=== PATIENT | male | born 1970 | race Caucasian/White ===

== ENCOUNTER → 2018-11-05 | Day surgery (SDC) | payer MEDICARE, OTHER ==
[~2018-11-05] MED LIST: FENTANYL CITRATE/PF 100MCG/2 ML INJ ONE; FISH OIL 1,0001 EAC2 PO; HYOSCYAMINE SULFATE 0.5 MG/ML INJ ONE; MIDAZOLAM HCL 2 MG/2 ML VIAL ONE; MULTI-VITAMIN1 EACH PO; PROPOFOL IV EMULSION 10 MG/ML 20 ML VIAL ONE; PROPOFOL IV EMULSION 10 MG/ML 50 ML VIAL ONE
[2018-11-05 14:25] VITALS: BP 104/70
--- NOTE | 2018-11-05 21:17 | Operative Report ---
DATE OF PROCEDURE: 11/05/2018 SURGEON: Manohar Turpin MD PROCEDURE: Colonoscopy with polypectomy and biopsies. INDICATIONS FOR COLONOSCOPY: History of Crohn disease, colon polyps. MEDICATIONS: The patient was done under MAC, please see anesthesiologist's note. PROCEDURE IN DETAIL: With the patient in left lateral decubitus position, a flexible fiberoptic Olympus colonoscope was inserted into the rectum with ease and advanced all the way to the ileocolic anastomosis, which was intact. The anastomosis was ulcerated and biopsies were obtained. The scope was then withdrawn slowly and 2 polyps, one was hot biopsied and the other was snared from the descending colon. Diverticular disease was noted in the sigmoid colon. Three polyps were hot biopsied from the distal rectum. The scope was then retroflexed into the distal rectum and small internal hemorrhoids were noted, none of which was actively bleeding. The scope was then straightened out, it was subsequently withdrawn. The patient tolerated the procedure well. IMPRESSION: 1. Ileocolic anastomosis intact, ulcerated, biopsied. 2. Descending colon polyps x2, one snared, one hot biopsied. 3. Diverticulosis. 4. Rectal polyps x3, hot biopsied. 5. Small internal hemorrhoids, none actively bleeding. PLAN: Follow up histology. Check CRP and sedimentation rate. The patient might benefit from a followup colonoscopy in 3 years. Manohar Turpin MD [facility] /[id number] cc: Bear Mix MD
== END | disposition home or self-care (01) ==
LOC: OR 11:39 → EDBD 13:30
PROVIDERS: ATTEND Internal Medicine Gastroenterology
DX: K50.90 Crohn's disease, unspecified, without complications (principal); K63.5 Polyp of colon; K62.1 Rectal polyp; K63.3 Ulcer of intestine; K57.30 Diverticulosis of large intestine without perforation or abscess without bleeding; K64.8 Other hemorrhoids; Z98.0 Intestinal bypass and anastomosis status; K21.9 Gastro-esophageal reflux disease without esophagitis; E78.00 Pure hypercholesterolemia, unspecified; R03.0 Elevated blood-pressure reading, without diagnosis of hypertension; Z88.6 Allergy status to analgesic agent; Z01.810 Encounter for preprocedural cardiovascular examination; Z68.29 Body mass index [BMI] 29.0-29.9, adult
CPT/HCPCS: 36415; 45380; 45384; 45385; 83993; 85651; 86140; 88305; 93005; J1980; J2250; J2704 ×2; 45378; 88312

== ENCOUNTER 2020-01-22 11:57 | Emergency (ER) | payer MEDICARE, OTHER ==
[~2020-01-22] VITALS: Ht 175.3 cm; Wt 86.2 kg
[~2020-01-22 11:57] MED LIST changes: -FENTANYL CITRATE/PF 100MCG/2 ML INJ ONE; -HYOSCYAMINE SULFATE 0.5 MG/ML INJ ONE; -MIDAZOLAM HCL 2 MG/2 ML VIAL ONE; -PROPOFOL IV EMULSION 10 MG/ML 20 ML VIAL ONE; -PROPOFOL IV EMULSION 10 MG/ML 50 ML VIAL ONE
--- OUTSIDE RECORDS SUMMARY | 2020-01-22 12:57 | XMS REPORT | Continuity of Care Document ---
Author Author [facility] t Organization [facility] Address [address] [place] [address] Phone Unavailable Care Team Providers Care Job Change Crew Member Name Role Phone NO, PCP PCP Unavailable SWEET, Jennifer GROVES Attphys Unavailable Payers Payer Name Policy Type Policy Number Effective Date Expiration Date [place] [facility] [id number] 00:00:00 [facility] Medicare A & B [id number] 2011 00:00:00 [facility] [id number] 2012 00:00:00 [facility] Problems This patient has no known problems. Allergies, Adverse Reactions, Alerts Allergy Name Allergy Type Status Severity Reaction(s) Onset Date Inacti ve Date Treating Clinician Comments Source Morphine Allergy to Substance Active REDNESS/ITCH 2018-08-12 00:00 :00 [facility] Social History Social Habit Start Date Stop Date Quantity Comments Source Sex Assigned At Kee Chapman Medications Ordered Medication Name Filled Medication Name Start Date Stop Da te Current Medication? Ordering Clinician Indication Dosage Frequency Signature (SIG) Comments Components Source B-12 B-12 Yes 1 Weekly [facility] Doxycycline Doxycycline Yes Daily [facility] Iron Iron Yes 65 Daily [facility] [place]-3 Fatty Acids/Fish Oil (Fish Oil 1,000 Mg Capsul e) 1 Each Capsule [place]-3 Fatty Acids/Fish Oil (Fish Oil 1,000 Mg Capsule) 1 Each Capsule Yes 1000 Daily [facility] Omeprazole (Prilosec) 40 Mg Capsule. Omeprazole (Prilosec) 40 Mg Capsule.dr Peraza 40 As Needed [facility] Remecaide Remecaide Yes Q 8 Wks [facility] Vitamin D Vitamin D Yes Daily [facility] Multivitamin (Multi-Vitamin Daily) 1 Each Tablet Multi vitamin (Multi-Vitamin Daily) 1 Each Tablet Yes 1 Daily [facility] [place]-3 Fatty Acids/Fish Oil (Fish Oil 1,000 Mg Capsul e) 1 Each Capsule [place] Fatty Acids/Fish Oil (Fish Oil 1,000 Mg Capsule) 1 Each Capsule Yes 1 Daily [facility] Vit. D , 72420 Oral Vit. D , 28467 Oral 2016-11-01 00:00:00 No [address]82 Weekly [facility] Acetaminophen With Codeine (Tylenol With Codeine #3 Tablet) 1 Each Tablet, 300 Mg Oral Acetaminophen With Codeine (Tylenol With Codeine #3 Tablet) 1 Each Tablet, 300 Mg Oral 2016-10-31 00:00:00 No 300 Every 6 Hours for Pain [facility] Atorvastatin Calcium (Lipitor) 20 Mg Tablet, 20 Mg Ora l Atorvastatin Calcium (Lipitor) 20 Mg Tablet, 20 Mg Oral 2016-10-31 00:00:00 No 2 0 Daily [facility] Meclizine Hcl (Antivert) 25 Mg Tablet, 25 Mg Oral Mecl izine Hcl (Antivert) 25 Mg Tablet, 25 Mg Oral 2016-10-31 00:00:00 No 25 Every 8 Hours for Dizziness [facility] Vit. K , 595 Mg Oral Vit. K , 595 Mg Oral 2016-10-31 00:00:00 No 595 Daily [facility] Doxycycline , 50 Mg Oral Doxycycline , 50 Mg Oral 2015-02-20 00: 00:00 No 50 Daily [facility] Hydrocodone Bit/Acetaminophen (Hydrocodo n-Acetaminophn 10-325) 1 Each Tablet, 10-325 Mg Oral Hydrocodone Bit/Acetaminophen (Hydrocodo n-Acetaminophn 10-325) 1 Each Tablet, 10-325 Mg Oral 2015-02-20 00:00:00 No As Needed [facility] Gummies B12 , Oral Gummies B12 , Oral 2014-09-26 00:00:00 No Daily [facility] Gummies Vit C , Oral Gummies Vit C , Oral 2014-09-26 00:00:00 No Daily [facility] Gummies Vit D , Oral Gummies Vit D , Oral 2014-09-26 00:00:00 No Daily [facility] Procedures Procedure Date / Time Performed Performing Clinician [facility] e X-ray of chest, two views 2019-05-26 00:00:00 YANELI BARRIOS [facility] COLONOSCOPY AND BIOPSY 2018-11-05 00:00:00 OZZY ALONSO [facility] COLONOSCOPY W/LESION REMOVAL 2018-11-05 00:00[facility] 2018-11-05 00:00:00 ALONSO, [facility] Plan of Care Planned Activity Planned Date Details Comments Source Future Scheduled Test 2020-02-26 00:00:00 INFLUENZA VACCINE [code = INFLUENZA VACCINE] [facility] Future Scheduled Test 2019 00:00:00 COLONOSCOPY SCREEN ING [code = COLONOSCOPY SCREENING] [facility] Future Scheduled Test 2019 00:00:00 SHINGLES VACCINES (#1) [code = SHINGLES VACCINES (#1)] [facility] Encounters Start Date/Time End Date/Time Encounter Type Admission Type Att[facility] Facility Care Department Encounter ID Source 2019-05-26 13:12:00 2019-05-26 15:08:00 Departed Emergency Room 1 SOPHIE YANELI [facility] [id number] [facility] 2019-05-22 16:30:00 2019-05-22 17:50:00 Departed Emergency Room [facility] [id number] [facility] 2018-11-05 11:39:00 2018-11-05 11:39:00 Registered Surgical Day Care [facility] [id number] [facility] 2018-08-12 17:02:00 2018-08-12 18:05:00 Departed Emergency Room [facility] [id number] [facility] Results Test Description Test Time Test Comments Results Result Comments Source CHEST 2 VIEWS 2019-05-26 14:36:00 [facility] [address] [address] Patient Name: TRACY BARR MR #: [id number] : 1970 Age/Sex: 49/M Req #: [id number] Adm Physician: Ordered by: YANELI BARRIOS MD Report #: [id number] Location: ER Room/Bed: Procedure: [id number] DX/CHEST 2 VIEWS Exam Date: 05/26/19 Exam Time: 1405 REPORT STATUS: Signed EXAMINATION: CHEST 2 VIEWS INDICATION: Cough COMPARISON: None FINDINGS: LINES/TUBES:None LUNGS:The lungs are well-inflated. No focal consolidation or pulmonary edema. Mild bibasilar subsegmental atelectasis. PLEURA:No p leural effusion or pneumothorax. MEDIASTINUM:The cardiomediastinal silhouette appears normal in size and shape. BONES/SOFT TISSUES:No acute osseous injury. ABDOMEN:No free air under the diaphragm. IMPRESSION: No focal pneumonia or pulmonary edema. Signed by: Pastor Lockwood MD on 05/26/2019 2:37 PM Dictated By: PASTOR LOCKWOOD MD 36 Transcribed By: KRISTAN on 05/26/191436 COPY TO: YANELI BARRIOS MD Group A Streptococcus Screen 2019-05-26 14:12:00 Test Item Group A Streptococcus Screen (test code = 03673-1) NEGATIVE [facility] [id number] 06:16:00* Test Item Value Reference Range Interpretation Comments Stool Calprotectin (test code = 01387-4) <16 0-120 Concentration Interpretation Follow-Up<16 - 50 ug/g Normal None>50 -120 ug/g Borderline Re-evaluate in 4-6 weeks >120 ug/g Abnormal Repeat as clinically indicatedPerformed at: [facility] [address] [id number] Director: Rossana Mtz MD, Phone: [phone] County Hospitaltool [id number] 06:16:00* Test Item Value Reference Range Interpretation Comments Stool Calprotectin (test code = 64259-1) <16 0-120 Concentration Interpretation Follow-Up<16 - 50 ug/g Normal None>50 -120 ug/g Borderline Re-evaluate in 4-6 weeks >120 ug/g Abnormal Repeat as clinically indicatedPerformed at: [facility] [address] [id number] Director: Rossana Mtz MD, Phone: [phone] Regional Medical CenterC-Reactive [id number] 01:20:00* Test Item Value Reference Range Interpretation Comments C-Reactive Protein (test code = 1987-09) 0.9 0.0-4.9 Effective November 11, 2018 the reference interval for C-Reactive Protein, Quant, will be changing to: Age Male Female 0 - 30 days Not Estab. Not Estab. 1 month - 17 years 0 - 7 0 - 9 >17 years 0 - 10 0 - 10Performed at: [facility] [address] [id number] Director: Nigel Koch MD, Phone: [phone] Regional Medical CenterC-Reactive [id number] 01:20:00* Test Item Value Reference Range Interpretation Comments C-Reactive Protein (test code = 1987-09) 0.9 0.0-4.9 Effective November 11, 2018 the reference interval for C-Reactive Protein, Quant, will be changing to: Age Male Female 0 - 30 days Not Estab. Not Estab. 1 month - 17 years 0 - 7 0 - 9 >17 years 0 - 10 0 - 10Performed at: [facility] [id number] Director: Nigel Koch MD, Phone: [phone] Regional Medical CenterErythrocyte Sedimentation [id number] 15:51:00* Test Item Value Reference Range Interpretation Comments Erythrocyte Sedimentation Rate (test code = 4537-7) 2 0- 13 [facility] CenterErythrocyte Sedimentation [id number] 15:51:00* Test Item Value Reference Range Interpretation Comments Erythrocyte Sedimentation Rate (test code = 4537-7) 2 0- 13 [facility]
--- OUTSIDE RECORDS SUMMARY | 2020-01-22 12:57 | XMS REPORT | Clinical Summary ---
Author Author [facility] Organization [place] [facility] Address Unknown Phone Unavailable Care Team Providers Care Water Project Manager Name Role Phone Asked, No Pcp PCP Unavailable Allergies Not on File Medications Not on file Active Problems Not on file Social History Date Tobacco Use Types Packs/Day Years Used Never Assessed Sex Assigned at Date Recorded Not on file Industry Job Start Date Occupation Not on file Not on file Not on file Travel End Travel History Travel Start No recent travel history available. Last Filed Vital Signs Not on file Plan of Treatment Health Maintenance Due Date Last Done Comments COLONOSCOPY SCREENING 2019 SHINGLES VACCINES (#1) 2019 INFLUENZA VACCINE 02/26/2020 Results Not on fileafter 01/21/2019 Insurance Type Payer Benefit Subscriber ID Effective Phone Address Plan / Dates Group Medicare MEDICARE MEDICARE xxxxxxxxxxx 2011-P [place] B xxxxxxxxx 2018- FOR LIFE Present MCR SUPPLEMENT Advance Directives For more information, please contact: [phone] Patient Sales Architect Explanation Type Date Recorded Advance Directives, Living Will and Medical Power of Needle Board Repairer
--- NOTE | 2020-01-22 13:31 | Diagnostic Imaging Report ---
EXAMINATION: CHEST SINGLE (PORTABLE) INDICATION: Cough, chills COMPARISON: Chest radiograph 05/26/2019 FINDINGS: LINES/TUBES:None LUNGS:The lungs are mildly hyperinflated. No focal consolidation or pulmonary edema. PLEURA:No pleural effusion or pneumothorax. MEDIASTINUM:The cardiomediastinal silhouette appears normal in size and shape. BONES/SOFT TISSUES:No acute osseous injury. ABDOMEN:No free air under the diaphragm. IMPRESSION: Mildly hyperinflated lungs. No focal pneumonia or pulmonary edema. Signed by: Rachna Pedersen MD on 01/22/2020 1:28 PM
--- NOTE | 2020-01-22 15:43 | Emergency Department Note ---
History of Present Illnes History of Present Illness Chief Complaint: Respiratory History of Present Illness This is a 49 year old male with Chief Complaint of cough. 49 Y/O MALE PT AAOX3 PRESENTS TO THE ER C/O CHILLS, COUGH, BODY ACHES AND MALAISE INTERMITTENTLY X2 WEEKS; PT REPORTS YELLOW SPUTUM; REPORTS TAKING X1 TYLENOL TAB MASH GRINDER; DENIES FEVER/CHILLS, N/V/D; PT DENIES CP OR SOB; RESP EVEN/UNLABORED; SKIN WARM, DRY AND COLOR WNL FOR PT; SPO2 98% RA; NAD NOTED AT THIS TIME. He had similar illness last year, tx with z-pack and albuterol. Historian: Patient Arrival Mode: Car Cleat Feeder Required: No Onset (how long ago): week(s) Radiation: Reports non-radiation Severity: moderate Onset quality: gradual Duration (how long): week(s) Progression: waxing and waning Chronicity: recurrent Relieving factors: none Exacerbating factors: none Associated symptoms: Reports denies other symptoms Treatments prior to arrival: none Previous service: medications given Past Medical/Family History Physician Review I have reviewed the patient's past medical and family history. Any updates have been documented here. Past Medical History Recent Fever: No Clinical Suspicion of Infectio: No New/Unexplained Change in Ment: No Other Medical History: CROHNS Past Surgical History: Appendectomy, Colon Resection Other Surgery: COLON RESECTION X 4 Social History Smoking Cessation: Never Smoker Alcohol Use: None Any Illegal Drug Use: No Physically hurt or threatened: No Other Last Tetanus: 2019 Any Pre-Existing Lines (PICC,: No Review of Systems Review of Systems Constitutional: Reports no symptoms EENTM: Reports no symptoms Cardiovascular: Reports no symptoms Respiratory: Reports no symptoms Gastrointestinal: Reports no symptoms Genitourinary: Reports no symptoms Musculoskeletal: Reports no symptoms Integumentary: Reports no symptoms Neurological: Reports no symptoms Psychological: Reports no symptoms Endocrine: Reports no symptoms Hematological/Lymphatic: Reports no symptoms Physical Exam Related Data Allergies: Coded Allergies: No Known Allergies (Unverified , 11/04/18) Triage Vital Signs Vital Signs Date Time Temp Pulse Resp B/P (MAP) Pulse Ox O2 Delivery O2 Flow Rate FiO2 01/22/20 12:19 98.5 74 18 138/89 99 Room Air Vital signs reviewed: Yes (sat 98 percent RA) Physical Exam CONSTITUTIONAL Constitutional: Present well-developed, Present well-nourished HENT HENT: Present normocephalic, Present atraumatic, Present oropharynx clear/moist, Present nose normal HENT L/R: Present left ext ear normal, Present right ext ear normal EYES Eyes: Reports PERRL, Reports conjunctivae normal NECK Neck: Present ROM normal PULMONARY Pulmonary: Present effort normal, Present breath sounds normal CARDIOVASCULAR Cardiovascular: Present regular rhythm, Present heart sounds normal, Present capillary refill normal, Present normal rate GASTROINTESTINAL Abdominal: Present soft, Present nontender, Present bowel sounds normal GENITOURINARY Genitourinary: Present exam deferred SKIN Skin: Present warm, Present dry MUSCULOSKELETAL Musculoskeletal: Present ROM normal NEUROLOGICAL Neurological: Present alert, Present oriented x 3, Present no gross motor or sensory deficits PSYCHOLOGICAL Psychological: Present mood/affect normal, Present judgement normal Results Imaging Imaging results reviewed: Yes Imaging Comments normal chest x ray Assessment & Plan Medical Decision Making MDM bronchitis vs URI Reassessment Reassessment talked in full sentence, can be safely d/c Assessment & Plan Final Impression: (1) Acute bronchitis (2) Upper respiratory infection Depart Disposition: HOME, SELF-CARE Last Vital Signs Date Time Temp Pulse Resp B/P (MAP) Pulse Ox O2 Delivery O2 Flow Rate FiO2 01/22/20 12:19 98.5 74 18 138/89 99 Room Air Home Meds Reported Medications [place]-3 Fatty Acids/Fish Oil (FISH OIL 1,000 MG CAPSULE) 1 Each Capsule, 1 CAP PO DAILY 11/04/18 Multivitamin (MULTI-VITAMIN DAILY) 1 Each Tablet, 1 TAB PO DAILY 11/04/18 Physician Attestation Provider Attestation cefdinir for 10 days, albuterol inhaler, cough meds JO ANN LUGO MD Jan 22, 2020 15:43
== END 2020-01-22 15:42 | disposition home or self-care (01) ==
LOC: ER 12:20
DX: J20.9 Acute bronchitis, unspecified (principal); J06.9 Acute upper respiratory infection, unspecified; R05 Cough; R53.81 Other malaise; Z87.19 Personal history of other diseases of the digestive system
CPT/HCPCS: 71045; 99283

== ENCOUNTER 2021-02-21 13:33 | Observation (INO) | payer MEDICARE, OTHER ==
[~2021-02-21] VITALS: Ht 175.3 cm; Wt 86.2 kg
[2021-02-21] MEDS ORDERED: ASPIRIN 81 MG CHEW TAB PO ONE ×2 (14:30→15:45)
[2021-02-21 14:49] LABS: BASOPHILS # (AUTO) 0.1 (0.0-0.1); EOSINOPHILS # (AUTO) 0.1 (0.0-0.4); EOSINOPHILS % 1.3 % (0.0-6.0); HEMATOCRIT 44.8 % (38.2-49.6); HEMOGLOBIN 13.5 g/dL (14.0-18.0); LYMPHOCYTES # (AUTO) 1.4 (1.0-3.2); MEAN CORPUSCULAR HGB CONC 30.1 g/dL (31-35); MONOCYTES # (AUTO) 0.4 (0.2-0.8); MONOCYTES % 5.9 % (4.4-11.3); NEUTROPHILS # (AUTO) 4.3 (2.1-6.9); NEUTROPHILS % 68.3 % (38.7-80.0); PLATELET COUNT 161 x10e3/uL (140-360); RED CELL DISTRIBUTION WIDTH 17.4 % (11.7-14.4)
[2021-02-21 14:56] LABS: INR 0.96
[2021-02-21 15:05] LABS: ALANINE AMINOTRANSFERASE 17 IU/L (0-55); ALBUMIN 4.2 g/dL (3.5-5.0); ALBUMIN/GLOBULIN RATIO 1.4 (0.8-2.0); ALKALINE PHOSPHATASE 58 IU/L (40-150); ANION GAP 10.7 mmol/L (8-16); BLOOD UREA NITROGEN 18 mg/dL (7-26); BUN/CREATININE RATIO 18 (6-25); CALCIUM 9.3 mg/dL (8.4-10.2); CARBON DIOXIDE 27 mmol/L (22-29); CHLORIDE 104 mmol/L (98-107); CREATINE KINASE 123 IU/L (30-200); EST GLOMERULAR FILTRATION RATE 78 ML/MIN (60-); GLUCOSE 112 mg/dL (74-118); MAGNESIUM 1.9 MG/DL (1.3-2.1); POTASSIUM 3.7 mmol/L (3.5-5.1); SODIUM 138 mmol/L (136-145)
[2021-02-21] MEDS ORDERED: ACETAMINOPHEN 325 MG TAB PO STA (17:26)
[2021-02-21 18:09] LABS: CHOL/HDL RATIO 3.5 (3.9-4.7)
[2021-02-21 19:22] LABS: CREATINE KINASE 101 IU/L (30-200)
[2021-02-21] MEDS ORDERED: SODIUM CHLORIDE 0.9% 50ML 50 ML ONE (19:25)
[2021-02-21] MEDS ORDERED: IOPAMIDOL 370 MG/ML 200 ML INFUS..BTL INJ ONE (19:25)
[2021-02-21] MEDS ORDERED: FLONASE ALLERG9.9 ML INH (21:54)
[2021-02-21] MEDS ORDERED: VITAMIN C500 MG PO (21:54)
[2021-02-21] MEDS ORDERED: FEROSUL325 MG PO (21:54)
[2021-02-21] MEDS ORDERED: ALLEGRA ALLERGY60 MG PO (21:54)
[2021-02-21 21:58] VITALS: BP 138/83
[2021-02-21 21:59] VITALS: BP 138/83
[2021-02-21 23:45] VITALS: BP 142/82
[2021-02-22] VITALS (7 sets, daily range): BP systolic 108–138; BP diastolic 59–71
[2021-02-22 06:00] LABS: CHOL/HDL RATIO 3.7 (3.9-4.7)
[2021-02-22 06:29] LABS: CREATINE KINASE MB 2.4 ng/mL (0-5.0)
[2021-02-22] MEDS ORDERED: PANTOPRAZOLE SOD 40 MG TABEC PO SCH (17:00)
[2021-02-22] MEDS: OXYMETAZOLINE HCL 0.05% NAS 1 SPRAY BTL SCH (17:22)
[2021-02-22] MEDS: CEFDINIR 300 MG CAP PO SCH (17:22)
[2021-02-22] MEDS: FAMOTIDINE 20 MG TAB PO SCH (17:22)
[2021-02-22] MEDS: SALINE 0.65% NAS SOLN 1 SPRAY BTL SCH ×2 (17:23→21:31)
[2021-02-23] VITALS: BP 145/78
[2021-02-23] MEDS: SALINE 0.65% NAS SOLN 1 SPRAY BTL SCH ×3 (02:00→10:16)
[2021-02-23 04:00] VITALS: BP 115/62
[2021-02-23 08:33] VITALS: BP 115/71
[2021-02-23] MEDS: FAMOTIDINE 20 MG TAB PO SCH (10:16)
[2021-02-23] MEDS: CEFDINIR 300 MG CAP PO SCH (10:16)
[2021-02-23] MEDS: OXYMETAZOLINE HCL 0.05% NAS 1 SPRAY BTL SCH (10:16)
[2021-02-23 11:57] VITALS: BP 121/78
== END 2021-02-23 13:02 | disposition home or self-care (01) ==
LOC: ER 14:01 → ERHOLD 16:36 → MED/SURG3 21:00
DX: R07.9 Chest pain, unspecified (principal); R04.2 Hemoptysis; K63.89 Other specified diseases of intestine; Z20.822 Contact with and (suspected) exposure to COVID-19; K50.90 Crohn's disease, unspecified, without complications; J32.9 Chronic sinusitis, unspecified; J30.9 Allergic rhinitis, unspecified; Z88.5 Allergy status to narcotic agent
CPT/HCPCS: 36415 ×2; 70486; 71045; 71260; 80053; 80061 ×2; 82550 ×2; 82553 ×2; 83735; 84484 ×2; 85025; 85379; 85610; 93005; 99284; G0378 ×3; Q9967; S0164; U0002

== ENCOUNTER 2021-05-03 11:58 | Emergency (ER) | payer MEDICARE, OTHER ==
[~2021-05-03] VITALS: Ht 175.3 cm; Wt 86.2 kg
[~2021-05-03 11:58] MED LIST changes: +ALLEGRA ALLERGY60 MG PO; +FEROSUL325 MG PO; +FLONASE ALLERG9.9 ML INH; +VITAMIN C500 MG PO
== END 2021-05-03 14:50 | disposition home or self-care (01) ==
LOC: ER 12:17
DX: J32.9 Chronic sinusitis, unspecified (principal); R05.9 Cough, unspecified; Z20.822 Contact with and (suspected) exposure to COVID-19; Z87.19 Personal history of other diseases of the digestive system
CPT/HCPCS: 71045; 99283; U0002